=== PATIENT | male | born 1950 | race Caucasian/White ===

== ENCOUNTER 2019-10-14 09:09 | Inpatient (IN) ==
--- NOTE | 2019-10-14 10:02 | Diag Imaging Result Doc PS360 ---
CHEST-1 VIEW - 10/14/2019 INDICATION: pneumothorax COMPARISON: 10/13/2019 FINDINGS: There is a grossly stable large right pneumothorax of about 60%. IMPRESSION: Stable large right pneumothorax. Electronically signed by Pablo Pemberton 10/14/2019 10:00 AM
[2019-10-14] MEDS ORDERED: ATIVAN IV ONE (10:11)
--- NOTE | 2019-10-14 10:13 | PROVIDER DOCUMENTATION ---
HPI-General Adult - General Chief Complaint: Return/Recheck Stated Complaint: CALLED TO COME BACK BY ER PHYSICIAN Time Seen by Provider: 10/14/19 09:25 Source: patient Allergies/Adverse Reactions: Patient Allergies Allergy/AdvReac Type Severity Reaction Status Date / Time Penicillins Allergy Unknown Verified 10/13/19 23:40 Home Medications: Home Medication List Medication Instructions Recorded Confirmed Last Taken Type Ipratropium/Albuterol INH 1 puff INH RTQ6H 08/23/17 10/14/19 10/14/19 05:00 History [Combivent Respimat Inhaler] Albuterol [Albuterol Neb] 2.5 mg INH Q4H PRN PRN #30 neb 10/29/17 10/14/19 10/14/19 05:00 Rx Omeprazole [Prilosec] 20 mg PO DAILY@0700 06/07/18 10/14/19 10/14/19 06:00 History ATORVAstatin [Lipitor] 40 mg PO QPM 10/13/19 10/14/19 10/13/19 21:00 History Aspirin [Lo-Dose Aspirin EC] 81 mg PO DAILY 10/13/19 10/14/19 10/14/19 06:00 History Furosemide 40 mg PO DAILY 10/13/19 10/14/19 10/14/19 07:00 History Isosorbide Mononitrate E.r. [Imdur] 30 mg PO DAILY 10/13/19 10/14/19 10/14/19 06:00 History Lisinopril 2.5 mg PO DAILY 10/13/19 10/14/19 10/14/19 06:00 History Metoprolol Succinate E.r. [Toprol 25 mg PO DAILY 10/13/19 10/14/19 10/14/19 06:00 History Xl] Prasugrel [Effient] 10 mg PO DAILY 10/13/19 10/14/19 10/14/19 06:00 History - History of Present Illness -Gen Adult Nature of Presenting Problems: Patient was presented yesterday for SOB and is presenting today for chest tube placement on the right side. Quality of Pain: reports: throbbing Severity: reports: moderate Onset/Duration: reports: abrupt Timing: reports: still present Associated Symptoms: reports: cough, shortness of breath Similar Symptoms Previously?: No Recently seen or treated by another doctor?: No Review of Systems - Adult - REVIEW OF SYSTEMS - ADULT Constitutional: reports: no symptoms reported. denies: chills, fever, fatique Eyes: reports: no symptoms reported Ears, Nose, Mouth & Throat: reports: no symptoms reported Cardiovascular: reports: chest pain Respiratory: reports: chronic cough, dyspnea on exertion, shortness of breath Gastrointestinal: reports: no symptoms reported Genitourinary: reports: no symptoms reported Musculoskeletal: reports: no symptoms reported Integumentary: reports: no symptoms reported Neurological: reports: no symptoms reported Psychiatric: reports: no symptoms reported Endocrine: reports: no symptoms reported Hematologic/Lymphatic: reports: no symptoms reported Allergic/Immunologic: reports: no symptoms reported All Other Systems: Reviewed and Negative Past History - Adult - PAST MEDICAL HISTORY-ADULT Review of Records: reports: Old Records Reviewed, Medications Reviewed Major Childhood Illnesses: reports: denies history Cardiovascular: reports: denies history, HTN Respiratory: reports: COPD Gastrointestinal: reports: denies history Obstetrical/Gynecological: reports: denies history Genitourinary: reports: denies history Musculoskeletal: reports: denies history Neurological: reports: denies history Endocrine/Immune: reports: denies history Other Conditions: reports: denies history Additional History: alcoholism - PRIOR SURGERIES/PROCEDURES Surgical/Procedure History: reports: none - IMMUNIZATION STATUS Childhood Immunizations: See Nurse Assessment Flu Vaccine: See Nurse Assessment - FAMILY HISTORY Family History: reviewed, not pertinent - SOCIAL HISTORY Smoking: cigarettes Substance Use: none/never Alcohol Use Frequency: occasionally Physical Exam-General - PHYSICAL EXAM-ADULT Initial Vital Signs Reviewed: Yes (oxygen saturation is low) - CONSTITUTIONAL General Appearance: appears well, alert, mild distress - EYES Eyes: PERRL/EOMI - HEAD, EARS, NOSE, MOUTH & THROAT HENMT: normocephalic/atraumatic. negative: moist mucous membranes - NECK Neck: full range of motion. negative: trachial deviation - RESPIRATORY Respiratory: chest non-tender, respiratory distress (decreased lung sounds on right side correlate clinically with CXR), accessory muscle use, pain on i nspiration. negative: normal breath sounds (decreased breath sounds on the right side), no respiratory distress, dull on percussion (tympany on percussion of the right side) - CARDIOVASCULAR Cardiovascular: normal peripheral pulses, regular rate, rhythm, no edema, no gallop, no JVD, no murmur - GASTROINTESTINAL (ABDOMEN) Abdominal Exam: normal bowel sounds, non tender, soft - MUSCULOSKELETAL Back Exam: normal inspection Extremity: normal range of motion, non-tender, normal gait Peripheral Pulses: radial (R): 2+, radial (L): 2+ - SKIN Integumentary: normal color. negative: normal turgor - NEUROLOGIC Neurologic: grossly normal - PSYCHIATRIC Psych/Mental Status: normal mood/affect Progress - PLAN OF CARE/RESULTS Progress/Plan/Lab Results: Vital Signs - 8 hr 10/14/19 09:24 Temperature 98.2 F Pulse Rate 94 H Respiratory Rate 20 Blood Pressure 126/72 O2 Sat by Pulse Oximetry 92 L Orders Category Date Time Status Obtain Pleural Cath Starter Ki ORDERED Care 10/14/19 09:47 Ordered cxr [CHEST-1 VIEW] [RAD] Stat Exams 10/14/19 09:21 Ordered Chest Tube Tray Stat Oth 10/14/19 09:47 Ordered Result Diagrams: 10/14/19 10:15 10/14/19 10:15 - EKG 1 Time of EKG reading by physician:: 11:55 EKG Read and Signed by:: Sj Chatterjee EKG Interpretation (*Must complete 3 of following elements*): Abnormal Rate: 95 Rhythm: sinus Newell: normal QRS: normal IA Interval: normal ST Wave: non-specific ST changes Prior EKG Comparison: no prior EKG - XRAY 1 XRAY Study: Chest Impression: Abnormal (CHEST-1 VIEW - 10/14/2019 INDICATION: pneumothorax COMPARISON: 10/13/2019 FINDINGS: There is a grossly stable large right pneumothorax of about 60%. IMPRESSION: Stable large right pneumothorax. Electronically signed by Pablo Pemberton 10/14/2019 10:00 AM 10/14/19 1000 Interpreting Physician: Pablo Pemberton MD Dictated Date/Time: 10/14/19 1000 cc: Sj Chatterjee MD; Cezar Rosa MD) 2 XRAY Study: Chest Impression: Abnormal (CHEST-PORTABLE - 10/14/2019 11:01 AM INDICATION: CT placement COMPARISON: 9:43 AM FINDINGS: There has been placement of a right basilar chest tube. There has been significant improvement in the right pneumothorax, which is now less than 20%. No other abnormalities. IMPRESSION: Good right chest tube placement with significant improvement of the right pneumothorax. Electronically signed by Pablo Pemberton 10/14/2019 11:16 AM 10/14/19 1116 Interpreting Physician: Pablo Pemberton MD Dictated Date/Time: 10/14/19 1114 cc: Sj Chatterjee MD; Cezar Rosa MD) Comparison with other Films: changes noted (Patient now has chest tube placed, CXR is much improved. pending radiologic interpretation. CHEST-PORTABLE - 10/14/2019 11:01 AM INDICATION: CT placement COMPARISON: 9:43 AM FINDINGS: There has been placement of a right basilar chest tube. There has been significant improvement in the right pneumothorax, which is now less than 20%. No other abnormalities. IMPRESSION: Good right chest tube placement with significant improvement of the right pneumothorax. Electronically signed by Pablo Pemberton 10/14/2019 11:16 AM 10/14/19 1116 Interpreting Physician: Pablo Pemberton MD Dictated Date/Time: 10/14/19 1114 cc: Sj Chatterjee MD; Cezar Rosa MD) - CONSULTS/PCP/HOSPITALIST Notification #1 *Consult/PCP/Hospitalist*: Spoke with the hospitalist in person regarding patient Time Discussed: 17:06 Reason/Comments: PNA Consult Disposition: Will see in ED Procedures - CHEST TUBE Right Upper Mid-Axillary Chest Consent Form Signed?: Yes Time-Out Verification Completed?: Yes (10:10) Size of Icelandic Tube (cm): 28 Site Prepped: Kit Utilized, Betadine Anesthetic: 1% Volume of Anesthesia (ml's): 20 [place] of [place]: Yes Number of Attempts: 1 Connected to Wall Suction?: Yes Tube Drainage: see nurses notes Tube Sutured to Skin: Yes Placement Verified by XRAY?: Yes Procedure Comment: tube is in transverse superior position but is still draining air. Departure - Departure Date of Disposition Decision: 10/14/19 Time of Disposition Decision: 11:25 DIAGNOSIS: Primary spontaneous pneumothorax, Admission for chest tube placement, Hyponatremia, Leukopenia Nicotine dependence Qualifiers: Nicotine product type: cigarettes Substance use status: uncomplicated Qualified Code(s): F17.210 - Nicotine dependence, cigarettes, uncomplicated Disposition: ADMITTED INPATIENT 09 Certified Medical Emergency: Emergent Condition: Fair - Critical Care Note This patient required my direct & personal management of CC.: Yes Total Time (mins): 60 Critical Care Statement: This patient required my direct personal management to treat or rule out processes, the absence of which, could potentiallly result in sudden, clinically significant life or limb threatening deterioration. Comments: approximately 60 minutes of critical care time was spent with this patient. Chest tube insertion was required to prevent immenent life threatening deterioration of the patient's respiratory status eventually leading to hy poxemia. Attestation - Physician/ MARVIN Attestation Patient care was provided by Advanced Practice Provider:: No The physician spent face to face time with patient:: Yes Advanced Practice Provider documentation review:: Supervising physician onsite and consulted in the evaluation and care of this patient. The physician did have a face to face encounter with the patient.
[2019-10-14] MEDS ORDERED: XYLOCAINE 2%/EPI 1:100,000 INJ ONE (10:22)
[2019-10-14] MEDS ORDERED: XYLOCAINE 2%/EPI 1:200,000 INJ ONE (10:30)
[2019-10-14] MEDS ORDERED: XYLOCAINE-MPF 1% ONE (10:35)
[2019-10-14] MEDS ORDERED: DILAUDID IV ONE ×2 (10:41→10:58)
[2019-10-14] MEDS ORDERED: DILAUDID ONE (10:41)
[2019-10-14] MEDS ORDERED: XYLOCAINE 1% INJ ONE (10:41)
--- NOTE | 2019-10-14 11:18 | Diag Imaging Result Doc PS360 ---
CHEST-PORTABLE - 10/14/2019 11:01 AM INDICATION: CT placement COMPARISON: 9:43 AM FINDINGS: There has been placement of a right basilar chest tube. There has been significant improvement in the right pneumothorax, which is now less than 20%. No other abnormalities. IMPRESSION: Good right chest tube placement with significant improvement of the right pneumothorax. Electronically signed by Pablo Pemberton 10/14/2019 11:16 AM
[2019-10-14 11:51] LABS: INR 1.01; PROTIME 13.4 Seconds (11.0-16.0)
[2019-10-14 11:52] LABS: PTT 29.8 Seconds (22.3-41.8)
[2019-10-14 11:53] LABS: HEMATOCRIT 40.3 % (42.0-52.0); HEMOGLOBIN 13.2 g/dL (14.0-18.0); LYMPH% 11.9 % (20.5-51.1); MCH 30.8 PG (27-31); MCHC 32.8 g/dL (33-37); MCV 94.2 FL (81-99); MONO# 0.04 X1000 (0.11-0.59); MPV 10.6 FL (7.4-10.4); NEUT# 3.67 X1000 (1.4-6.5); NEUT% 87.1 % (42.2-75.2); PLT 191 X1000 (130-400); RBC 4.28 XMIL (4.7-6.1); RDW 13.1 % (11.5-14.5); WBC 4.21 X1000 (4.8-10.8)
[2019-10-14 12:03] LABS: AGAP 15; ALB/GLOB RATIO 2.1; ALBUMIN 4.5 g/dL (3.5-5.0); ALKALINE PHOSPHATASE 102 U/L (32-122); BUN 17 mg/dL (8-22); CALCIUM 9.9 mg/dL (8.8-10.2); CHLORIDE 98 mmol/L (98-107); CK PROFILE 99 U/L (24-204); COSMO 273; CREATININE 0.8 mg/dL (0.7-1.2); ESTIMATED GFR > 60; GLUCOSE 156 mg/dL (70-104); GOT 20 U/L (10-34); GPT 14 U/L (10-44); SODIUM 134 mmol/L (136-145); TCO2 21 mmol/L (25-35); TOTAL BILIRUBIN 0.48 mg/dL (0.20-1.00); TOTAL PROTEIN 6.6 g/dL (6.3-8.3)
--- NOTE | 2019-10-14 12:12 | EKG Report ---
Test Performed on : 10/14/2019 11:58:01 AM Test Reason : status post chest tube insertion Blood Pressure : / mmHG Vent. Rate : 095 BPM Atrial Rate : 095 BPM P-R Int : 146 ms QRS Dur : 092 ms QT Int : 372 ms P-R-T Axes : 054 -20 006 degrees QTc Int : 467 ms Normal sinus rhythm. Nonspecific T wave abnormality Abnormal ECG When compared with ECG of 13-OCT-2019 20:36, (Unconfirmed) Borderline criteria for Inferior infarct are no longer present Nonspecific T wave abnormality now evident in Lateral leads Unconfirmed Result
[2019-10-14] MEDS ORDERED: ZOFRAN IV PRN ×2 (13:14→13:44)
[2019-10-14] MEDS ORDERED: TYLENOL PO PRN (13:44)
--- NOTE | 2019-10-14 14:57 | Diag Imaging Result Doc PS360 ---
EXAM: CT THORAX W/CONTRAST INDICATION: copd/pneumothorax TECHNIQUE: This exam was performed using automated exposure control, adjustment of mA or kV according to patient size, and/or use of iterative reconstruction technique. COMPARISON: None. FINDINGS: There is moderate to advanced pulmonary emphysema with an apical predominance. There is a right side pneumothorax. It occupies approximately 30-40% of the right hemithorax. There has been placement of a right chest tube. The chest tube is kinked abdomen acute angle and it may not aspirate efficiently. The chest tube the right thoracic cavity at its lateral aspect. It courses through the anteroinferior pleural space and the tip is then directed upward and posteriorly. It follows the course of the major fissure and it is probably within the major fissure. The tip is at the posterior superior chest wall on the right. There is atelectasis at the dependent portion of the lung on the right and there is minimal atelectasis on the left. There is a focus of increased opacity at the periphery of the partially collapsed right middle lobe on image 62 of series 3 that could represent a small contusion or infiltrate. There is trace pleural fluid layering only right. There is no cardiomegaly. There is coronary artery calcification. There is no evidence of significant mediastinal or hilar lymphadenopathy. Limited views of the upper abdomen are unremarkable. There is thoracic spondylosis. There is no evidence of acute osseous abnormality. IMPRESSION: 1.Pulmonary emphysema. 2.Right-sided pneumothorax occupying approximately 30-40% of the right hemithorax. 3.Recently placed right chest tube that appears to be in the major fissure and is kinked acutely, which may per minute from aspirated efficiently. Please correlate clinically. 4.Bilateral atelectasis, more prominent on the right. 5.Small hyperdense focus at the periphery of the right middle lobe that could represent a small pulmonary contusion or infiltrate. Electronically signed by Maninder Valdivia 10/14/2019 2:55 PM
[2019-10-14] MEDS: DUONEB (A & A) INH SCH ×3 (16:19→23:17)
[2019-10-14] MEDS ORDERED: MORPHINE ONE (16:35)
[2019-10-14] MEDS ORDERED: MORPHINE IV ONE (16:50)
[2019-10-14] MEDS: NS 1,000 ML IV SCH (16:56)
[2019-10-14] MEDS: SOLU-MEDROL IV SCH ×2 (16:56→21:00)
[2019-10-14] MEDS: NORCO-5 PO PRN (16:57)
--- NOTE | 2019-10-14 17:18 | Diag Imaging Result Doc PS360 ---
EXAM: CHEST-PORTABLE INDICATION: chest tube placement TECHNIQUE: 2 views COMPARISON: 10/14/2019 FINDINGS: There has been interval removal of the previous right chest tube and replacement with a small caliber chest tube. The right-sided pneumothorax has decreased since the previous radiograph. It appears to occupy approximately 15% of the right hemithorax at the apex. There is subcutaneous gas overlying the right chest wall. Otherwise, the chest is essentially stable. IMPRESSION: Interval placement of right chest tube with a small caliber chest tube and decrease in the right apical pneumothorax. Electronically signed by Maninder Valdivia 10/14/2019 5:16 PM
[2019-10-14] MEDS: LIPITOR PO SCH (21:00)
[2019-10-14] MEDS: AZACTAM 1 GM in NS 50 ML IV SCH (21:00)
--- NOTE | 2019-10-14 22:03 | HISTORY AND PHYSICAL ---
CHIEF COMPLAINT: Was right upper quadrant pain, cough. HISTORY OF PRESENT ILLNESS: This is a 69-year-old gentleman with a history of atrial fibrillation, hypertension, COPD, and peptic ulcer disease. He presented to the emergency room initially on October 13 about 8 o'clock complaining of right upper quadrant pain going up into his chest, it increased with movement and cough as well as shortness of breath. He states it had a sudden onset. He was diagnosed with COPD exacerbation and discharged home after radiologist reviewed his chest x-ray this morning he was found to have a 60% right-sided pneumothorax. He was called to return to the emergency room. Chest tube was placed by the ER physician. Repeat chest x-ray revealed a less than 20% pneumothorax. The patient denies any shortness of breath after placement. The patient denied any injury prior to the sudden onset of shortness of breath. PAST MEDICAL HISTORY: 1. COPD. 2. Atrial fibrillation. 3. Hypertension. 4. Peptic ulcer disease. 5. Coronary artery disease. PAST SURGICAL HISTORY: Cataract removal, left shoulder surgery, hemorrhoids and cardiac catheterization. SOCIAL HISTORY: He quit smoking. He drinks about 2 beers a day. He denies any illicit drug use. ALLERGIES: Penicillin. HOME MEDICATIONS: A list will be obtained by the nursing staff and once verified will review and restart as appropriate. REVIEW OF SYSTEMS: Discussed with the patient with pertinent positives stated in the HPI. He denied any syncope or dizziness any chest pain any palpitations, a productive cough, fever, chills, night sweats, any nausea, vomiting, diarrhea, constipation, black or bloody vomitus or stools, any hematuria, dysuria, frequency, urgency. PHYSICAL EXAMINATION: GENERAL: This is a 69-year-old gentleman who is sitting up in the stretcher in the emergency room in no distress. VITAL SIGNS: Blood pressure is 131/67 with a heart rate of 96, respirations are 20, temperature is 97.7 degrees oral with O2 saturations 95-97% on 3 L. HEENT: Head is normocephalic, atraumatic. Mucous membranes are moist. NECK: Supple with trachea midline. CARDIOVASCULAR: Regular rate and rhythm. S1 and S2 are appreciated. He has no lower extremity edema. Calves are nontender bilateral with peripheral pulses palpable x4 extremities. PULMONARY: Breath sounds are diminished throughout. He does have some crackles to the right side. Chest rises and falls symmetric with respiration . GASTROINTESTINAL: Abdomen soft, nontender, nondistended. Bowel sounds in all 4 quadrants. NEUROLOGIC: He is alert and oriented x3. SKIN: Warm and dry. He has a dressing to the right chest tube site that at this time is dry and intact. LABORATORY DATA: 1. WBC is 4.2 with hemoglobin 13.2, hematocrit 40.3 and platelets of 191,000. Sodium is 134, potassium 5, BUN 17, creatinine 0.8 with a glucose of 156. Troponin is negative. Chest x- ray 10/14 at 9:40 reveals a stable large right pneumothorax. 2. Chest x-ray 1044 which is post chest tube placement reveals less than 20% pneumothorax with right chest tube in good placement per Radiology read. 3. 10/14/2019 at 1650 chest x-ray reveals removal of the previous right chest tube replacement with a small caliber chest tube with subcu gas overlying the right chest wall . 4. CT of the chest reveals pulmonary emphysema, right-sided pneumothorax occupying 30 to 40 percent the right hemothorax, recently placed right chest tube appears to be in the major fissure is kinked acutely, bilateral atelectasis more prominent on the right, small hyperdense focus at the periphery the right middle lobe that could represent a small pulmonary contusion or infiltrate. ASSESSMENT AND PLAN: 1. Right-sided pneumothorax spontaneous s/p chest tube insertion. He will be admitted to the medical floor. General surgery has been consulted for assistance with chest tube management. 2. Possible pneumonia. Will order blood and sputum cultures. IV antibiotics will be started. 3. Chronic anticoagulation on Effient. Aware. 4. History of atrial fibrillation. At present he is in sinus rhythm, will continue to monitor. 5. History of chronic obstructive pulmonary disease. Will continue his home medications and start supplemental oxygen. 6. History of hypertension. We will continue his home medicines as appropriate. 7. History of peptic ulcer disease. We will continue PPI Plan was discussed with Dr Grubbs Further treatments pending hospital course. Dictated by JAKCSON Skinner for Silvia Grubbs MD cc: JACKSON Skinner MD I performed a face to face encounter on the patient. I reviewed all labs and imaging on the patient. I agree with the H&P as dictated. Mr.Sean is a 69 year old male with a history of CAD and COPD who presented to the ER with a large right spontaneous pneumothorax. In the ER, a right sided chest tube was placed by the ER physician. A CT of the chest was ordered which revealed that the chest tube was not in place. General surgery was consulted and the chest was replaced. On exam, the patient is alert and oriented x 4. The breath sounds are equal bilaterally. His heart sounds are regular. The patient will be admitted with a diagnosis of a spontaneous right sided pneumothorax and pneumonia. General surgery will follow closely. Will also add antibiotic therapy and bronchodilator therapy. Blood and sputum cultures have been ordered. [facility]
--- NOTE | 2019-10-14 22:25 | GENERAL SURGERY CONSULTATION ---
DATE: 10/14/2019 REQUESTING PHYSICIAN: Dr. Orozco. CONSULT REQUEST: Right-sided pneumothorax. HISTORY OF PRESENT ILLNESS: A 69-year-old gentleman who initially came to the ER yesterday with shortness of breath. He was discharged but found on follow-up chest x-ray to have a pneumothorax. He was asked to come back to the emergency department. Upon evaluation in the emergency department he had a chest tube placed by the ER physician, which resolved some of the pneumothorax, but it looked like the chest tube was malposition after getting a chest CT scan. I was asked to weigh an opinion. Patient is still complaining of shortness of breath and chest pain. PAST MEDICAL HISTORY: History of atrial fibrillation, emphysema, asthma, hyperlipidemia, hypertension. PAST SURGICAL HISTORY: Includes cataract, left shoulder, hemorrhoids, cardiac stents. SOCIAL HISTORY: Former smoker, but does drink beer daily. ALLERGIES: Penicillin. HOME MEDICATIONS: Reviewed. FAMILY HISTORY: Reviewed with the patient and noncontributory. REVIEW OF SYSTEMS: A full 14-systems reviewed and negative, except as specified in HPI. PHYSICAL EXAMINATION: Vital Signs: The patient is currently afebrile. His vital signs stable. General: Somewhat acute distress. male, taking short breaths. HEENT: Normocephalic, atraumatic. Pupils equal, round, react to light. Mucous membranes moist. Oropharynx benign. Neck: Supple. Trachea midline. Cardiovascular: Regular rate and rhythm. Lungs: Decreased breath sounds noted on the right. Chest tube noted without any fluctuation with respirations. Abdomen: Soft, nontender, nondistended. Extremities: Moves all extremities. Neurologic: Grossly intact. Skin: No signs of jaundice. Vascular: All extremities perfused. LABORATORY: Reviewed. CT scan reviewed and independently reviewed and discussed with radiologist. ASSESSMENT AND PLAN: A 69-year-old gentleman with right-sided pneumothorax with malposition chest tube. Right-sided pneumothorax and right malposition chest tube. At this time, we will remove it and replace it. Discussed with patient the risks, benefits, alternatives. We will plan on doing this at the bedside. All questions answered. cc: Robert Morin MD
--- NOTE | 2019-10-14 22:31 | OPERATIVE NOTE ---
PROCEDURE DATE: 10/14/2019 PREOPERATIVE DIAGNOSIS: Right-sided pneumothorax with malposition chest tube. POSTOPERATIVE DIAGNOSIS: Right-sided pneumothorax with malposition chest tube. PROCEDURES: 1. Removal of chest tube on the right. 2. Placement of a 8-Lebanese chest tube. SURGEON: Robert Morin MD. HORSE AND WAGON DRIVER: None. ANESTHESIA: Local administered by the surgeon. FINDINGS: Evacuation of air noted when we placed the new chest tube. Chest x-ray is pending. BRIEF HISTORY: A 69-year-old gentleman with pneumothorax. He had a chest tube placed in the ER that was malpositioned and needed to be removed. The risks, benefits, and alternatives for the procedure were discussed and all questions answered. DESCRIPTION OF PROCEDURE: After informed consent was obtained, the patient remained in his room in the hospital. We removed the previous dressing from his chest tube. We cut the sutures from his previous chest tube and removed his previous chest tube with 1 continuous motion. We then prepped and draped the right chest in a standard fashion. After a formal time-out, confirming patient and procedure, we used local anesthetic to anesthetize the 5th intercostal space in the anterior axillary line, made a small stab incision, directed the pneumodart into the chest, aspirated air, advanced this catheter over the needle in the Seldinger technique and connected it to the chest tube. I evacuated a significant amount of air. We secured it in place and I also stitched the previous chest tube site closed. We then placed Xeroform over both and the patient tolerated the procedure well. A chest x-ray is pending. cc: Robert Morin MD
[2019-10-15] MEDS: DUONEB (A & A) INH SCH ×6 (04:01→23:37)
[2019-10-15] MEDS: AZACTAM 1 GM in NS 50 ML IV SCH ×3 (05:11→21:07)
[2019-10-15] MEDS: NS 1,000 ML IV SCH (06:11)
[2019-10-15] MEDS: SOLU-MEDROL IV SCH (06:12)
[2019-10-15] MEDS: PRILOSEC PO SCH (06:14)
[2019-10-15] MEDS ORDERED: PRILOSEC PO SCH (07:00)
--- NOTE | 2019-10-15 07:37 | Diag Imaging Result Doc PS360 ---
CHEST-1 VIEW - 10/15/2019 INDICATION: pneumothorax COMPARISON: 10/14/2019 at 5:07 PM FINDINGS: There is a stable small bore right chest tube. There has been decrease in the small right pneumothorax. There is probably a small apical pneumothorax measuring up to 1.1 cm, about 10%. IMPRESSION: Further decrease in the small right pneumothorax. Electronically signed by Pablo Pemberton 10/15/2019 7:35 AM
[2019-10-15 07:38] LABS: AGAP 14; BUN 17 mg/dL (8-22); CALCIUM 9.5 mg/dL (8.8-10.2); CHLORIDE 103 mmol/L (98-107); COSMO 280; CREATININE 0.9 mg/dL (0.7-1.2); ESTIMATED GFR > 60; GLUCOSE 157 mg/dL (70-104); POTASSIUM 4.3 mmol/L (3.5-5.1); SODIUM 138 mmol/L (136-145); TCO2 21 mmol/L (25-35)
[2019-10-15 07:57] LABS: HEMATOCRIT 39.4 % (42.0-52.0); HEMOGLOBIN 12.6 g/dL (14.0-18.0); IMM GRAN# 0.03 X1000 (0.0-0.04); IMM GRAN% 0.2 % (0.0-0.5); LYMPH# 0.46 X1000 (1.2-3.4); LYMPH% 3.8 % (20.5-51.1); MCH 30.6 PG (27-31); MCV 95.6 FL (81-99); MONO# 0.47 X1000 (0.11-0.59); MONO% 3.9 % (1.7-9.3); MPV 10.4 FL (7.4-10.4); NEUT# 11.18 X1000 (1.4-6.5); NEUT% 92.1 % (42.2-75.2); PLT 204 X1000 (130-400); RBC 4.12 XMIL (4.7-6.1); RDW 13.4 % (11.5-14.5); WBC 12.14 X1000 (4.8-10.8)
[2019-10-15 08:21] LABS: LYMPHS 4 % (21-51); MONO 3 % (1-9); SEGS 93 % (42-75)
[2019-10-15] MEDS ORDERED: LOVENOX SUBQ SCH (09:00)
[2019-10-15] MEDS: MIRALAX PO SCH (09:01)
[2019-10-15] MEDS: EFFIENT PO SCH (09:04)
[2019-10-15] MEDS: TOPROL XL PO SCH (09:04)
[2019-10-15] MEDS: PRINIVIL PO SCH (09:04)
[2019-10-15] MEDS: ZITHROMAX PO SCH (09:06)
[2019-10-15] MEDS: IMDUR PO SCH (09:06)
[2019-10-15] MEDS: ASPIRIN EC PO SCH (09:06)
[2019-10-15] MEDS: NORCO-5 PO PRN ×2 (09:07→19:30)
[2019-10-15] MEDS: COLACE PO SCH ×2 (09:12→21:07)
--- NOTE | 2019-10-15 10:07 | GENERAL SURGERY PROGRESS NOTE ---
DATE: 10/15/2019 SUBJECTIVE: Patient seems to be doing okay. His chest x-ray yesterday showed improvement, but he still has a small apical pneumothorax. Nursing staff reports that he seems to pull out his dressings for his chest tube. They even reported that he had tissues stuffed in his wound. When I evaluated the patient, his incision was okay. OBJECTIVE: Vital Signs: Patient is currently afebrile. Vital signs are stable. General: No acute distress. HEENT: Normocephalic, atraumatic. Pupils equal, round, reactive to light. Mucous membranes moist. Oropharynx benign. Neck: Supple. Trachea midline. Cardiovascular: Regular rate and rhythm. Lungs: Grossly clear. Increased breath sounds noted on the right. No air leak noted on the chest tube but the chest tube is to suction. Dressing is intact. Abdomen: Soft, nontender, nondistended. Extremities: Moves all extremities. Neurologic: Grossly intact. Skin: No signs of jaundice. Vascular: All extremities perfused. LABORATORY DATA: None this morning. IMAGING: Chest x-ray from yesterday reviewed. He has had improvement in his pneumothorax. ASSESSMENT AND PLAN: A 69-year-old gentleman with right-sided pneumothorax. Right-sided pneumothorax. At this time, keep the chest tube to suction. We will evaluate it later tomorrow to see if it is improved. Hopefully, will continue to cause resolution of the pneumothorax. It does not, may need to consider repositioned in the operating room, but my partner, Dr. Haley, who is covering over the holiday, will evaluate that. We will continue to follow. cc: Robert Morin MD
--- NOTE | 2019-10-15 11:23 | PROGRESS NOTE ---
DATE: 10/15/2019 SUBJECTIVE: The patient is lying in bed. He complains of pain where his chest tube is inserted in the right chest wall. He has no other complaints. OBJECTIVE: Vital Signs: Temperature 97.7 degrees, blood pressure 142/64, heart rate 89, respirations 23, O2 saturation 98% on room air. General: This is a chronically ill-appearing, elderly male, lying in bed in no acute distress. Heart: S1, S2 normal. Regular rate and rhythm. Lungs: Equal air entry bilaterally. No wheezing. No rales. No rhonchi. Abdomen: Positive bowel sounds. Soft, nontender, nondistended. Extremities: No edema, no cyanosis, no calf tenderness. Neurologic: The patient is alert and oriented x4. No focal neurologic deficits noted. LABORATORY DATA: White blood cell count 12, hemoglobin 12, hematocrit 39, platelets 204,000. Sodium 138, potassium 4.3, chloride 103, CO2 of 21, BUN 17, creatinine 0.9, glucose 157. ASSESSMENT AND PLAN: 1. Right sided pneumothorax status post chest tube placement. Slowly improving. Management as per the general surgeon. 2. Possible right lobe pneumonia. Will start the patient on antibiotics. Continue with bronchodilator therapy. 3. Emphysema. Aware. The patient states that he quit smoking a year ago. 4. Atrial fibrillation. The patient is rate controlled. Continue on the current cardiac medications. 5. Coronary artery disease. Continue on the current cardiac medications. 6. Alcohol dependence. Will monitor the patient closely for withdrawal symptoms. Will also start prn Ativan. 7. Constipation. Will start the patient on laxative therapy. 8. Chronic obstructive pulmonary disease. Continue with bronchodilator therapy. cc: Silvia Grubbs MD [facility]
--- NOTE | 2019-10-15 18:37 | CONSULTATION ---
DATE OF CONSULTATION: 10/15/2019 REQUESTING PROVIDER: Dr. Silvia Grubbs. REASON FOR CONSULTATION: COPD and pneumothorax, status post chest tube. HISTORY OF PRESENT ILLNESS: This is a 69-year-old male with a medical history of COPD, atrial fibrillation, hypertension, coronary artery disease and peptic ulcer disease. He apparently is our office patient. He presented to the ER on the evening of 10/13/2019 with acute right upper quadrant abdominal pain and shortness of breath. He initially was diagnosed with COPD exacerbation, and he was discharged home with a Medrol Dosepak. Later the radiologist reviewed his chest x-ray and found a 60% right-sided pneumothorax. The patient was called to come back for admission and followup procedure. After arrival to the ER, the patient underwent a chest tube placement by Dr. Morin. Followup chest x-ray revealed significant improvement of the right pneumothorax, which was less than 20%. The patient currently is sitting on the edge of the bed with no acute distress noted. He is on a NC at 3 L, and s tolerating it well. He states he is feeling better and the RUQ pain is improving. He reports that on the evening of 10/13/2019 he did eat some food that caused him lots of gas, and he is afraid that that is the reason he got the pneumothorax. He denies recent fall or any trauma to the chest. He reports he has cardio exercises daily including biking and stretches for over 4 months. He has some stable chronic cough and stable dyspnea on exertion. He has no chest pain, palpitations, fever, chills, noticeable weight change, bowel habit change, urination discomfort, pedal edema, or PND. PAST MEDICAL/SURGICAL HISTORY: 1. COPD. PFT on 09/10/2019 revealed moderate COPD with FEV1 66% predicted. On Advair and Combivent at home. 2. Atrial fibrillation. 3. Hypertension. 4. Coronary artery disease. 5. Peptic ulcer disease. 6. Status post cataract removal. 7. Status post left shoulder surgery. 8. Status post hemorrhoid removal. 9. Status post cardiac catheterization. SOCIAL HISTORY: The patient lives at home with his family. He used to smoke up to 3 or 4 packs per day since he was 6 years old. He quit smoking 8 years ago. He drinks about 2 beers a day for years, since he was 17 years old. He has no illicit drug use. 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 FAMILY HISTORY: Positive for COPD, Alzheimer disease, heart disease and cancer. ALLERGIES: Penicillins. REVIEW OF SYSTEMS: A 10-point review of systems was conducted, and the pertinent is listed within the HPI. Otherwise, noncontributory. PHYSICAL EXAMINATION: Vital Signs: Temperature 97.7, blood pressure 142/64, pulse 89, respiratory rate 23, oxygen saturation 93% on nasal cannula at 3 L. General: Chronically ill appearing, sitting on the edge of the bed with no acute distress noted. He does show some voluntary extremity tremors. HEENT: Atraumatic, normocephalic. Trachea midline. Mucosa pink and moist. Respiratory: Even and unlabored. Symmetrical excursion. Auscultation revealed diminished breathing sounds on the right side of the chest where the chest tube is located. Cardiovascular: Regular rate and rhythm. Gastrointestinal: Soft, nondistended, nontender. Normoactive bowel sounds in all 4 quadrants. Extremities: No pedal edema, no cyanosis, no clubbing. Dorsalis pedis 2+ bilaterally. Neurologic: Alert and oriented x3. Speech fluent. Follows commands. LABORATORY DATA: White blood cells 12.14, hemoglobin 12.6, hematocrit 49.4, platelets 104. Sodium 138, potassium 4.3, chloride 103, carbon dioxide 21, BUN 17, creatinine 0.9, glucose 157. IMAGING DATA: Chest x-ray this morning showed further decrease in the small right pneumothorax which is probably a small apical pneumothorax measuring up to 1.1 cm, about 10% now. ASSESSMENT: This is a 69-year-old male with a medical history of chronic obstructive pulmonary disease, atrial fibrillation, hypertension, coronary artery disease and peptic ulcer disease. He has been admitted since yesterday with a large right-sided pneumothorax. 1. Acute hypoxemic respiratory failure, improving. 2. Large right-sided pneumothorax, likely spontaneous, originally about 60%, currently improved to about 10% after a right-sided chest tube was placed. 3. Chronic obstructive pulmonary disease. No acute exacerbation noted. PLAN: 1. Continue management per the general surgeon. 2. Continue antibiotics and bronchodilators for possible right lobe pneumonia. 3. Follow up with CBC, BMP and chest x-ray. 4. Further recommendations pending hospital course. Thank you for the courtesy of this consult. Dictated by JACKSON Stanley for Lexy Crane MD cc: JACKSON Stanley MD [facility]
[2019-10-15] MEDS: LIPITOR PO SCH (21:07)
[2019-10-16] MEDS: DUONEB (A & A) INH SCH ×5 (03:52→19:52)
[2019-10-16] MEDS: MIRALAX PO SCH ×3 (04:47→21:15)
[2019-10-16] MEDS: AZACTAM 1 GM in NS 50 ML IV SCH ×3 (06:13→21:15)
[2019-10-16] MEDS: PRILOSEC PO SCH (06:13)
[2019-10-16] MEDS: NORCO-5 PO PRN ×2 (06:13→21:14)
--- NOTE | 2019-10-16 07:15 | Diag Imaging Result Doc PS360 ---
EXAM: CHEST-1 VIEW HISTORY: pneumothorax TECHNIQUE: Single view COMPARISON: 10/15/2019 FINDINGS: Interval increase in the size of the right-sided pneumothorax. This now measures just under 3 cm superiorly. Laterally it has also increased in size. Mild cardiomegaly and pulmonary edema. No effusions identified. IMPRESSION: Moderate sized right pneumothorax which is larger than on the prior study. Electronically signed by Trey Sweet 10/16/2019 7:13 AM
[2019-10-16 07:22] LABS: HEMATOCRIT 38.8 % (42.0-52.0); HEMOGLOBIN 12.4 g/dL (14.0-18.0); MCH 31.6 PG (27-31); MCV 98.7 FL (81-99); RBC 3.93 XMIL (4.7-6.1); RDW 13.8 % (11.5-14.5); WBC 12.63 X1000 (4.8-10.8)
[2019-10-16 07:50] LABS: AGAP 13; BUN 20 mg/dL (8-22); CALCIUM 9.9 mg/dL (8.8-10.2); CHLORIDE 104 mmol/L (98-107); COSMO 284; CREATININE 0.9 mg/dL (0.7-1.2); ESTIMATED GFR > 60; GLUCOSE 96 mg/dL (70-104); POTASSIUM 4.2 mmol/L (3.5-5.1); SODIUM 141 mmol/L (136-145); TCO2 24 mmol/L (25-35)
[2019-10-16] MEDS: ASPIRIN EC PO SCH (10:17)
[2019-10-16] MEDS: LACTULOSE PO SCH ×2 (10:17→21:15)
[2019-10-16] MEDS: ZITHROMAX PO SCH (10:18)
[2019-10-16] MEDS: TOPROL XL PO SCH (10:18)
[2019-10-16] MEDS: EFFIENT PO SCH (10:18)
[2019-10-16] MEDS: PRINIVIL PO SCH (10:18)
[2019-10-16] MEDS: COLACE PO SCH ×2 (10:19→21:15)
[2019-10-16] MEDS: IMDUR PO SCH (10:19)
--- NOTE | 2019-10-16 11:08 | GENERAL SURGERY PROGRESS NOTE ---
DATE: 10/16/2019 SUBJECTIVE: He feels okay. He denied any shortness of breath. Still coughing some. No tachycardia. OBJECTIVE: Oxygen saturations in high 90s on room air. General: He is alert. His right chest tube is in place. It is to -40 suction with no air leak. I reviewed his labs, overall about stable. I reviewed his x-ray. It does show a slight increase in his pneumothorax on today's study. ASSESSMENT AND PLAN: A 69-year-old gentleman with increased pneumothorax that was spontaneous. He had initial chest tube that was removed and then a small bore tube placed by Dr. Morin. This seems to be in place and is tidaling. However, he does have continued increase in his pneumothorax. Given this, we will make him nothing per oral at midnight. We will follow his x- ray in the morning. He may require more large bore chest tube placement in the operating room tomorrow. I have discussed with the patient. He obviously is apprehensive. He does not want another tube but I worry that with the increase that this will fail to resolve spontaneously. cc: Bette Haley MD
--- NOTE | 2019-10-16 15:57 | PROGRESS NOTE ---
DATE: 10/16/2019 INTERVAL HISTORY: He got x-ray of the chest, which unfortunately suggested worsening right-sided pneumothorax. General surgical team is planning possibly another chest tube placement in the operating room. SUBJECTIVE: The patient is feeling better. Denies chest pain, except occasional sharp pain in right lower chest. His shortness of breath has improved. He denies productive cough, though occasionally has dry cough. He denies any nausea, vomiting, abdominal pain. He is eating well. No lower extremity edema. VITAL SIGNS: He has been afebrile with temperature of 97.4 degrees, pulse 75, respiratory rate 18, blood pressure 136/73, saturating 97% on 2 L nasal cannula. PHYSICAL EXAMINATION: General: Not in acute distress. Oral cavity: Dry. Lungs: Air entry bilaterally equal. No wheeze, rhonchi, or crackles. Cardiovascular: S1, S2 normal. Regular. No murmur, rub, or gallop. Abdomen: Soft, nontender. Extremity: He is alert and oriented x3. He has a right-sided chest tube which is connected to chest tube bag apparatus without any air leak. LABS: Persistent mild leukocytosis, normocytic anemia, normal platelet count. Normal electrolytes. MICROBIOLOGY: No positive microbiological data. IMAGING: Chest x-ray today in the morning suggests moderate-sized right pneumothorax, which is larger on prior studies. ASSESSMENT AND PLAN: 1. Spontaneous right pneumothorax with prior history of chronic obstructive pulmonary disease, status post chest tube placement. Continue management as per general surgical team. 2. Suspected right lower lobe pneumonia. Continue albuterol ipratropium nebulization as needed, azithromycin and aztreonam. 3. History of atrial fibrillation, currently rate controlled. Continue his home medication of beta blockers. 4. History of coronary artery disease, status post stent in May 2019. Continue home aspirin, prasugrel, metoprolol, lisinopril, isosorbide and atorvastatin. 5. Alcohol use disorder. Patient does not have any signs of alcohol withdrawal. Continue laxative therapy for constipation. 6. Disposition: Monitor patient inside the hospital as we await further surgical recommendation. Plan of care discussed with the patient. cc: Pelon Sanchez MD
[2019-10-16] MEDS: LIPITOR PO SCH (21:14)
[2019-10-17] MEDS: DUONEB (A & A) INH SCH ×6 (05:17→23:14)
[2019-10-17] MEDS: AZACTAM 1 GM in NS 50 ML IV SCH ×3 (06:01→21:35)
--- NOTE | 2019-10-17 07:04 | Diag Imaging Result Doc PS360 ---
EXAM: CHEST-1 VIEW HISTORY: pneumothorax TECHNIQUE: Single view COMPARISON: 10/16/2019 FINDINGS: Stable right-sided pneumothorax. There is a small right chest tube which is unchanged. Left lung remains well expanded. No cardiomegaly. No pleural effusions identified. IMPRESSION: Stable chest Electronically signed by Trey Sweet 10/17/2019 7:01 AM
[2019-10-17] MEDS: PRILOSEC PO SCH (07:25)
[2019-10-17 07:28] LABS: AGAP 13; BUN 18 mg/dL (8-22); CALCIUM 9.7 mg/dL (8.8-10.2); CHLORIDE 106 mmol/L (98-107); COSMO 289; CREATININE 0.9 mg/dL (0.7-1.2); ESTIMATED GFR > 60; GLUCOSE 99 mg/dL (70-104); POTASSIUM 4.6 mmol/L (3.5-5.1); SODIUM 144 mmol/L (136-145); TCO2 25 mmol/L (25-35)
[2019-10-17] MEDS: ZITHROMAX PO SCH (10:40)
[2019-10-17] MEDS: PRINIVIL PO SCH (10:40)
[2019-10-17] MEDS: EFFIENT PO SCH (10:40)
[2019-10-17] MEDS: TOPROL XL PO SCH (10:40)
[2019-10-17] MEDS: ASPIRIN EC PO SCH (10:40)
[2019-10-17] MEDS: IMDUR PO SCH (10:41)
[2019-10-17] MEDS: COLACE PO SCH ×2 (10:49→21:34)
[2019-10-17] MEDS: LACTULOSE PO SCH ×2 (10:50→21:34)
[2019-10-17] MEDS: MIRALAX PO SCH ×2 (10:50→21:34)
[2019-10-17] MEDS: NORCO-5 PO PRN ×3 (11:52→23:57)
--- NOTE | 2019-10-17 11:52 | GENERAL SURGERY PROGRESS NOTE ---
DATE: 10/17/2019 SUBJECTIVE: He says with his pulmonary status he feels much better, he is breathing comfortably. He is not having any discomfort. No fevers. OBJECTIVE: Vitals: Pulse 73, blood pressure 129/72, oxygen saturation 97%. General: He is alert. Chest: His right chest tube is in place. It is up to -40 suction with no air leak, minimal output. The dressing is in place. He is in no acute distress on his respiratory rate, and I do not palpate any subcutaneous air. DIAGNOSTIC DATA: His creatinine is 0.9. I reviewed his chest x-ray, this shows a persistent stable right-sided pneumothorax, mostly apical, with an inferiorly-based small-bore chest tube. He does have some subcu air. There is no midline shift. ASSESSMENT AND PLAN: This is a 69-year-old gentleman with persistent pneumothorax despite initial chest tube placement that was malpositioned, and a subsequent small-bore chest tube. I have recommended chest tube placement in the operating room,posterior and apically with a larger bore tube. He is apprehensive. I discussed the pathophysiology of pneumothoraces and the probability of it resolving with this is low. He is not in any distress, and unfortunately our OR schedule is quite full today and it is going to be late this evening. He does not want to stay NPO all day. As such, we will make him n.p.o. at midnight and plan for chest tube first thing in the morning. We discussed risk of damage to lung, persistent leak, persistence of pneumothorax, anticipated recovery, and injury to surrounding structures and infection. He understands all this and consents. His family is here with him. cc: Bette Haley MD
--- NOTE | 2019-10-17 20:31 | PROGRESS NOTE ---
DATE: 10/17/2019 SUBJECTIVE: The patient is resting comfortably in bed. No acute events noted overnight. OBJECTIVE: Vital Signs: Temperature 98.1 degrees, blood pressure 107/68, heart rate 76, respirations 20, O2 saturation 99% on room air. General: This is a chronically ill-appearing elderly male sitting up in bed in no acute distress. Heart: S1, S2 normal. Regular rate and rhythm. Lungs: Equal air entry bilaterally. No wheezing. No rales. Abdomen: Positive bowel sounds. Soft, nontender, nondistended. Extremities: No edema, no cyanosis. Neurologic: The patient is alert and oriented x3. LABORATORY DATA: Sodium 144, potassium 4.6, chloride 106, CO2 25, BUN 18, creatinine 0.1, glucose 99. IMAGING: Chest x-ray shows a right-sided pneumothorax. ASSESSMENT AND PLAN: 1. Right sided pneumothorax status post chest tube placement. Unchanged. The patient is scheduled to go to the OR tomorrow. 2. Right lobe pneumonia. Continue with antibiotics and bronchodilator therapy. 3. Emphysema. Aware. 4. Atrial fibrillation. Continue on the current cardiac medications. 5. Alcohol dependence. Continue to monitor the patient closely for withdrawal. 6. Chronic obstructive pulmonary disease. Continue with bronchodilator therapy. 7. Constipation. Continue with scheduled laxative therapy. 8. CAD. Continue on the current cardiac medications. Hold effient. cc: Silvia Grubbs MD [facility]
[2019-10-17] MEDS: LIPITOR PO SCH (21:35)
[2019-10-18] MEDS: DUONEB (A & A) INH SCH ×6 (04:32→23:16)
[2019-10-18] MEDS: AZACTAM 1 GM in NS 50 ML IV SCH ×3 (06:11→22:08)
[2019-10-18] MEDS: PRILOSEC PO SCH (06:11)
[2019-10-18] MEDS ORDERED: MARCAINE 0.25% PF/EPI 1:200,000 ONE (07:29)
[2019-10-18 07:43] LABS: MAGNESIUM 2.2 mg/dL (1.5-2.7); PHOSPHORUS 3.6 mg/dL (2.7-4.5)
[2019-10-18] MEDS ORDERED: DIPRIVAN 1% ONE ×3 (07:54→08:14)
[2019-10-18 07:57] LABS: AGAP 10; BUN 19 mg/dL (8-22); CALCIUM 9.6 mg/dL (8.8-10.2); CHLORIDE 105 mmol/L (98-107); COSMO 282; CREATININE 0.8 mg/dL (0.7-1.2); ESTIMATED GFR > 60; GLUCOSE 100 mg/dL (70-104); POTASSIUM 4.5 mmol/L (3.5-5.1); SODIUM 140 mmol/L (136-145); TCO2 25 mmol/L (25-35)
[2019-10-18] MEDS ORDERED: XYLOCAINE 1% ONE (08:04)
[2019-10-18] MEDS ORDERED: XYLOCAINE-MPF 2% ONE (08:14)
[2019-10-18] MEDS: MORPHINE ONE ×5 (08:30→17:40)
--- NOTE | 2019-10-18 08:36 | Diag Imaging Result Doc PS360 ---
EXAM: CHEST-PORTABLE - 10/18/2019 HISTORY: chest tube insertion TECHNIQUE: Portable chest COMPARISON: 10/17/2019 FINDINGS: The right chest tube has been exchanged for a larger caliber right chest tube. The tip of the chest tube is located at the superior medial right chest. The right pneumothorax appears to have decreased mildly. There is no dense consolidation or pleural effusion identified. Heart size is normal. IMPRESSION: Tip of new chest tube at superior medial right chest. Mild decrease in right pneumothorax. Electronically signed by Alexey Jimenes 10/18/2019 8:34 AM
[2019-10-18] MEDS ORDERED: MORPHINE ONE (08:51)
[2019-10-18] MEDS: ZOFRAN ONE ×2 (08:55→17:40)
[2019-10-18] MEDS: EPHEDRINE ONE ×2 (09:00→17:40)
[2019-10-18] MEDS: LACTULOSE PO SCH ×2 (10:29→22:09)
[2019-10-18] MEDS: ASPIRIN EC PO SCH (10:30)
[2019-10-18] MEDS: COLACE PO SCH ×2 (10:30→22:08)
[2019-10-18] MEDS: ZITHROMAX PO SCH (10:30)
[2019-10-18] MEDS: IMDUR PO SCH (10:31)
[2019-10-18] MEDS: PRINIVIL PO SCH (10:31)
[2019-10-18] MEDS: TOPROL XL PO SCH (10:31)
[2019-10-18] MEDS: MIRALAX PO SCH ×2 (10:33→22:09)
[2019-10-18] MEDS: NORCO-5 PO PRN ×3 (10:33→20:04)
--- NOTE | 2019-10-18 12:00 | GENERAL SURGERY PROGRESS NOTE ---
DATE: 10/18/2019 SUBJECTIVE: Feels well. no issues over night OBJECTIVE: Vitals: Blood pressure 127/63. General: On exam he is alert, in no acute distress. HEENT: There is no scleral icterus. Skin: No jaundice. Abdomen: Soft, nontender, nondistended. Pulmonary: right ct in place DIAGNOSTIC DATA: I have reviewed his labs. ASSESSMENT AND PLAN: A gentleman, with persistent right pneumothorax despite 2 chest tubes one of which was malpositioned and the second a small bore tube. I have recommended large bore chest tube placement today. We discussed risk of bleeding infection cardiopulmonary complications need for further procedures. HE understands and consents. OR today. cc: Bette Haley MD [facility]
[2019-10-18] MEDS ORDERED: DILAUDID IV PRN ×2 (12:09→13:01)
--- NOTE | 2019-10-18 13:38 | OPERATIVE NOTE ---
PROCEDURE DATE: 10/18/2019 PREOPERATIVE DIAGNOSES: 1. Persistent right pneumothorax. 2. Emphysematous changes of the lung. POSTOPERATIVE DIAGNOSES: 1. Persistent right pneumothorax. 2. Emphysematous changes of the lung. PROCEDURE: Right-sided 32-Micronesian chest tube placement. ANESTHESIA: MAC with local. INDICATION: A gentleman who has had 2 chest tubes, one placed in the emergency department that was malpositioned, other small bore tube and he has had a persistent right-sided pneumothorax. Needs a large bore tube for more adequate drainage. Issues complicated by recent coronary stents on Effient which makes him a poor candidate for general anesthetic in that procedure. OPERATIVE FINDINGS: There was a starr of air. Minimal bleeding. Chest tube was secured at 13 cm. OPERATIVE NOTE: Risks, benefits and alternatives were discussed patient and he was seen preoperatively. Surgical site was confirmed and marked. He was taken operating room placed supine position, general anesthesia was induced. His arm was positioned above his head and IV anesthesia was administered. His right chest prepped with chlorhexidine solution and draped in the usual fashion. After time-out, we removed his previous chest tube. He had a previous chest tube incision that was closed with silk suture. As such, we elected to place our tube slightly inferior and posterior to this incision. We carried this down after injecting local anesthetic and aspirating air with our seeker needle to the rib and entered the chest using blunt dissection over the top of the rib protecting the artery and diaphragm. We were we confirmed we were intrathoracic and a 32-Micronesian chest tube was directed posterior and apically without resistance. It was secured with 2-0 silk suture. Dressing was applied. He tolerated it well. The chest tube titled well. There was a starr of air upon entering the chest. cc: Bette Haley MD [facility]
--- NOTE | 2019-10-18 18:30 | PROGRESS NOTE ---
DATE: 10/18/2019 SUBJECTIVE: The patient is resting comfortably in bed. No acute events noted overnight. He is complaining of pain at the site of his chest tube insertion. OBJECTIVE: Vital Signs: Temperature 98.8 degrees, blood pressure 106/71, heart rate 87, respirations 16, O2 saturation 98% on room air. General: This is a [id number] elderly male lying in bed in no acute distress. Heart: S1, S2 normal. Regular rate and rhythm. Lungs: Equal air entry bilaterally. Abdomen: Positive bowel sounds. Soft, nontender, nondistended. Extremities: No edema, no cyanosis. Neurologic: The patient is alert and oriented x3. LABS: Reviewed and within normal limits. ASSESSMENT AND PLAN: 1. Status post chest tube placement secondary to spontaneous right pneumothorax. Management as per the general surgeon. 2. Right lobe pneumonia. Continue with antibiotics, bronchodilator therapy and supplemental oxygen. 3. Emphysema. Aware. 4. Atrial fibrillation. The patient is rate controlled. Continue on the current cardiac medications. 5. Chronic obstructive pulmonary disease. Continue with bronchodilator therapy and supplemental oxygen. 6. Constipation. Continue with laxative therapy. 7. Alcohol dependence. The patient is on p.o. Ativan. 8. Coronary artery disease. Continue on the current cardiac medications. cc: Silvia Grubbs MD [facility]
[2019-10-18] MEDS: LIPITOR PO SCH (22:09)
[2019-10-19] MEDS: NORCO-5 PO PRN ×3 (00:41→14:13)
[2019-10-19] MEDS: DUONEB (A & A) INH SCH ×6 (03:45→22:59)
[2019-10-19] MEDS: AZACTAM 1 GM in NS 50 ML IV SCH ×3 (06:00→19:59)
[2019-10-19] MEDS: PRILOSEC PO SCH (06:00)
[2019-10-19] MEDS: ASPIRIN EC PO SCH (07:35)
[2019-10-19] MEDS: PRINIVIL PO SCH ×2 (07:42→14:36)
[2019-10-19] MEDS: TOPROL XL PO SCH ×2 (07:42→14:36)
[2019-10-19] MEDS: COLACE PO SCH ×4 (07:42→20:00)
[2019-10-19] MEDS: ZITHROMAX PO SCH ×2 (07:44→14:36)
[2019-10-19] MEDS: IMDUR PO SCH ×2 (07:44→14:35)
[2019-10-19] MEDS: EFFIENT PO SCH (07:45)
--- NOTE | 2019-10-19 08:38 | Diag Imaging Result Doc PS360 ---
EXAM: CHEST-PORTABLE HISTORY: ptx TECHNIQUE: Single view COMPARISON: 10/18/2019 FINDINGS: Interval decrease in the size of the right-sided pneumothorax. No change in the right chest tube. The left lung remains well expanded. The heart is borderline mildly prominent. No pulmonary edema. No pleural effusions identified. IMPRESSION: Interval improvement with decrease in the size of the right pneumothorax Electronically signed by Trey Sweet 10/19/2019 8:36 AM
[2019-10-19] MEDS: LACTULOSE PO SCH ×2 (14:35→20:00)
[2019-10-19] MEDS: MIRALAX PO SCH ×2 (14:35→20:00)
--- NOTE | 2019-10-19 14:55 | GENERAL SURGERY PROGRESS NOTE ---
DATE: 10/19/2019 SUBJECTIVE: He is doing well. No shortness of breath. No cough. No fevers. No tachycardia. OBJECTIVE: Blood pressure 130/62. Right chest tube is in place, -40 suction. No air leak. The output has been stable since last night, about a liter out though. I reviewed his labs and his x-rays. X-ray shows resolution of his pneumothorax this morning with good position of tube. No evidence of effusion. ASSESSMENT AND PLAN: A 69-year-old gentleman with right-sided pneumothorax. This is resolved now with his chest tube. We will keep it to suction through the day today and begin the process of water-seal and removal in the next 24 to 48 hours. Continue aggressive pulmonary toilet. cc: Bette Haley MD
--- NOTE | 2019-10-19 14:57 | PROGRESS NOTE ---
DATE: 10/19/2019 SUBJECTIVE: The patient is resting comfortably in bed. OBJECTIVE: Vital Signs: Temperature is 97.9 degrees, blood pressure 95/56, heart rate 89, respirations 17, O2 saturation is 97% on 2 L nasal cannula. General: This is a chronically ill- appearing, elderly male lying in bed, in no acute distress. Heart: S1, S2 normal. Regular rate and rhythm. Lungs: Clear to auscultation bilaterally. Abdomen: Positive bowel sounds. Soft, nontender, nondistended. Extremities: No edema, no cyanosis. Neurologic: The patient is alert and oriented x3. Labs: Sodium 140, potassium 4.5, chloride 105, CO2 of 25, BUN 19, creatinine 0.8, glucose 100. ASSESSMENT AND PLAN: 1. Status post chest tube placement secondary to a right-sided spontaneous pneumothorax. Improving. Management as per the general surgeon. 2. Right lobe pneumonia. Continue with antibiotics, supplemental oxygen, and bronchodilator therapy. 3. Emphysema. Aware. 4. Atrial fibrillation. The patient is rate controlled. Continue on the current cardiac medications. 5. Chronic obstructive pulmonary disease. Continue on bronchodilator therapy. 6. Constipation. Continue with scheduled laxative therapy. 7. Coronary artery disease. Continue on the current cardiac medications. cc: Silvia Grubbs MD
[2019-10-19] MEDS: LIPITOR PO SCH ×2 (19:52→20:00)
[2019-10-19] MEDS: ADVAIR 250/50 DISKUS INH SCH (20:10)
[2019-10-20] MEDS: DUONEB (A & A) INH SCH ×6 (03:43→23:11)
[2019-10-20] MEDS: PRILOSEC PO SCH (06:06)
[2019-10-20] MEDS: NORCO-5 PO PRN ×3 (06:13→14:30)
[2019-10-20] MEDS: ADVAIR 250/50 DISKUS INH SCH ×2 (07:31→19:56)
[2019-10-20 08:12] LABS: HEMATOCRIT 30.3 % (42.0-52.0); HEMOGLOBIN 9.8 g/dL (14.0-18.0); MCH 31.8 PG (27-31); MCHC 32.3 g/dL (33-37); MCV 98.4 FL (81-99); RBC 3.08 XMIL (4.7-6.1); RDW 13.1 % (11.5-14.5); WBC 7.45 X1000 (4.8-10.8)
[2019-10-20 08:29] LABS: AGAP 10; BUN 14 mg/dL (8-22); CALCIUM 9.2 mg/dL (8.8-10.2); CHLORIDE 102 mmol/L (98-107); COSMO 275; CREATININE 0.7 mg/dL (0.7-1.2); ESTIMATED GFR > 60; GLUCOSE 110 mg/dL (70-104); POTASSIUM 4.2 mmol/L (3.5-5.1); SODIUM 137 mmol/L (136-145); TCO2 25 mmol/L (25-35)
[2019-10-20] MEDS: AZACTAM 1 GM in NS 50 ML IV SCH ×2 (08:40→17:00)
[2019-10-20] MEDS: IMDUR PO SCH (08:41)
[2019-10-20] MEDS: EFFIENT PO SCH (08:41)
[2019-10-20] MEDS: TOPROL XL PO SCH (08:41)
[2019-10-20] MEDS: ZITHROMAX PO SCH (08:41)
[2019-10-20] MEDS: MIRALAX PO SCH ×2 (08:41→21:38)
[2019-10-20] MEDS: ASPIRIN EC PO SCH (08:42)
[2019-10-20] MEDS: LACTULOSE PO SCH ×3 (08:42→21:37)
[2019-10-20] MEDS: COLACE PO SCH ×2 (08:42→21:37)
[2019-10-20] MEDS: PRINIVIL PO SCH (08:46)
--- NOTE | 2019-10-20 10:40 | Diag Imaging Result Doc PS360 ---
CHEST-1 VIEW - 10/20/2019 INDICATION: SOB COMPARISON: 10/19/2019 FINDINGS: Stable right chest tube. Stable to slightly decreased soft tissue gas along the right chest wall. Stable faint infiltrate or atelectasis at the right lung base. No pneumothorax. No new abnormalities. IMPRESSION: Slight decrease in soft tissue gas along the right chest wall, otherwise no change from prior. Electronically signed by Pablo Pemberton 10/20/2019 10:38 AM
--- NOTE | 2019-10-20 17:23 | PROGRESS NOTE ---
DATE: 10/20/2019 SUBJECTIVE: The patient is resting comfortably in bed. He states that he feels good. The only time he hurts is if he tries to move around too much. His chest tube is in place. OBJECTIVE: Vital Signs: Temperature 98.3 degrees, blood pressure 106/63, heart rate 88, respirations 17, O2 saturations 100% on room air. General: This is a chronically ill-appearing elderly male lying in bed in no acute distress. Heart: S1, S2 normal. Regular rate and rhythm. Lungs: Equal air entry bilaterally. No wheezing, no rales. Abdomen: Positive bowel sounds. Soft, nontender, nondistended. Extremities: No edema, no cyanosis. Neuro: The patient is alert and oriented x4. LABS: Hemoglobin 9.8, hematocrit 30, platelets 215,000. Sodium 137, potassium 4.2, chloride 102, CO2 25, BUN 14, creatinine 0.7, glucose 110. Chest x-ray shows slight decrease in soft tissue gas along the right chest wall. ASSESSMENT AND PLAN: 1. Status post chest tube placement secondary to right-sided spontaneous pneumothorax. Slowly improving. Management as per the general surgeon. 2. Right lobe pneumonia. Improved. Continue with antibiotics, supplemental oxygen and bronchodilator therapy. 3. Chronic obstructive pulmonary disease with emphysema. Aware. Continue on bronchodilator therapy. 4. Atrial fibrillation. The patient is rate controlled. Continue on the current cardiac medications. 5. Coronary artery disease. Stable. Continue on the current cardiac medications. 6. Constipation. Continue on MiraLAX and Colace. Will also add Dulcolax suppositories. cc: MD RATNA Fraser
[2019-10-20] MEDS: LIPITOR PO SCH (21:37)
--- NOTE | 2019-10-20 21:37 | GENERAL SURGERY PROGRESS NOTE ---
DATE: 10/20/2019 SUBJECTIVE: Feels much better. Minimal discomfort at the chest tube site. No shortness of breath. No fevers. OBJECTIVE: Vital signs: Pulse 88, blood pressure 106/63, oxygen 100 percent. General: He is alert. Cardiovascular: Normal rate. Pulmonary: His right chest tube is in place on pulmonary exam. It is to -40 suction. There is a stable amount of output since yesterday right at a L. There is no air leak with Valsalva. LABORATORIES: I reviewed his labs. Hematocrit 30 from 38. Creatinine is 0.7. IMAGING: I reviewed his x-ray that shows resolution of pneumothorax with decreasing subcu air. ASSESSMENT AND PLAN: A 69-year-old gentleman with right-sided pneumothorax. We will place a chest tube. We will decrease to -20 suction. If it remains inflated tomorrow, we will water seal it and plan on removal 24 hours after that. Otherwise, continue pulmonary toileting, nebulized therapy. cc: Bette Haley MD
[2019-10-20] MEDS: DULCOLAX PR SCH (21:38)
[2019-10-21] MEDS: NORCO-5 PO PRN ×4 (00:23→22:32)
[2019-10-21] MEDS: AZACTAM 1 GM in NS 50 ML IV SCH ×2 (00:43→08:16)
[2019-10-21] MEDS: DUONEB (A & A) INH SCH ×6 (04:07→23:20)
[2019-10-21] MEDS: PRILOSEC PO SCH (06:03)
[2019-10-21 07:48] LABS: HEMATOCRIT 30.2 % (42.0-52.0); HEMOGLOBIN 9.8 g/dL (14.0-18.0); MCH 31.5 PG (27-31); MCHC 32.5 g/dL (33-37); MCV 97.1 FL (81-99); MPV 9.7 FL (7.4-10.4); RBC 3.11 XMIL (4.7-6.1); RDW 13.3 % (11.5-14.5); WBC 7.06 X1000 (4.8-10.8)
--- NOTE | 2019-10-21 07:54 | Diag Imaging Result Doc PS360 ---
CHEST-1 VIEW - 10/21/2019 INDICATION: SOB COMPARISON: 10/20/2019 FINDINGS: Stable right chest tube. There is further decrease in the mild right chest wall soft tissue gas. No pneumothorax. No new infiltrates. Heart size remains normal. IMPRESSION: No complication or new abnormality. Electronically signed by Pablo Pemberton 10/21/2019 7:51 AM
[2019-10-21] MEDS: ADVAIR 250/50 DISKUS INH SCH ×2 (08:04→19:23)
[2019-10-21] MEDS: EFFIENT PO SCH (08:16)
[2019-10-21] MEDS: PRINIVIL PO SCH (08:16)
[2019-10-21] MEDS: ASPIRIN EC PO SCH (08:16)
[2019-10-21] MEDS: ZITHROMAX PO SCH (08:17)
[2019-10-21] MEDS: IMDUR PO SCH (08:17)
[2019-10-21] MEDS: TOPROL XL PO SCH (08:17)
[2019-10-21] MEDS: MIRALAX PO SCH ×2 (08:19→22:26)
[2019-10-21] MEDS: COLACE PO SCH ×2 (08:19→22:25)
[2019-10-21] MEDS: LACTULOSE PO SCH ×2 (08:19→22:25)
[2019-10-21 08:36] LABS: AGAP 11; BUN 14 mg/dL (8-22); CHLORIDE 103 mmol/L (98-107); COSMO 276; CREATININE 0.7 mg/dL (0.7-1.2); ESTIMATED GFR > 60; GLUCOSE 104 mg/dL (70-104); POTASSIUM 4.5 mmol/L (3.5-5.1); SODIUM 138 mmol/L (136-145); TCO2 24 mmol/L (25-35)
--- NOTE | 2019-10-21 19:31 | PROGRESS NOTE ---
DATE: 10/21/2019 INTERVAL HISTORY: No acute events overnight. SUBJECTIVE: Patient denies any chest pain, shortness of breath, nausea, vomiting, unusual cough, abdominal pain. He has had a bowel movement. He has some discomfort because of chest tube. I discussed with him about chest x-ray findings, resolution of pneumothorax and pneumonia. I answered all of his questions. VITALS: Temperature of 97.9 degrees, pulse 74, respiratory 18, blood pressure 130/68. He is saturating 98% on room air. PHYSICAL EXAMINATION: General: Does not appear in any acute distress. He has a right-sided chest tube. HEENT: Oral cavity is moist. Lungs: Air entry bilaterally equal. No wheeze, rhonchi, crackles. Cardiovascular: S1, S2 normal. No murmur, rub, or gallop. Abdomen: Soft, nontender. Extremity: No lower extremity edema. Neurologic: He is alert and oriented x3. Input and output suggests -1.8 L. LABS: Suggestive of normocytic anemia, normal platelet count. Normal electrolytes. MICROBIOLOGY: No positive data. IMAGING: Chest x-ray suggests no complication or new abnormality. ASSESSMENT AND PLAN: 1. Right-sided spontaneous pneumothorax with history of emphysema, status post chest tube twice and eventually requiring another large-bore chest tube placement in the operating room. Continue chest tube management as per surgical team. 2. Right lower lobe pneumonia, status post intravenous aztreonam and azithromycin of seven days, which I will stop today. 3. History of chronic obstructive pulmonary disease with emphysema, aware. Continue bronchodilator therapy. 4. History of atrial fibrillation, currently well controlled on home metoprolol. 5. History of coronary artery disease requiring stent in May 2019. I will continue his home aspirin, atorvastatin, isosorbide mononitrate, lisinopril, metoprolol and prasugrel. DISPOSITION: Awaiting chest tube removal. Plan of care discussed with the patient and his questions have been satisfactorily answered. cc: Pelon Sanchez MD
[2019-10-21] MEDS: DULCOLAX PR SCH (22:25)
[2019-10-21] MEDS: LIPITOR PO SCH (22:25)
--- NOTE | 2019-10-21 22:42 | GENERAL SURGERY PROGRESS NOTE ---
DATE: 10/21/2019 SUBJECTIVE: Doing well. No fevers. No tachycardia. He is saturating high 90s on room air. OBJECTIVE: General: He is alert. His right chest tube is to -20 suction with no air leak. DIAGNOSTIC DATA: His chest x-ray shows no evidence of ongoing pneumothorax and less subcutaneous air. ASSESSMENT AND PLAN: Water seal his tube. If lung remains inflated tomorrow with no leak, we will plan on removing at that juncture. Otherwise, continue pulmonary toileting. cc: Bette Haley MD
[2019-10-22] MEDS: DUONEB (A & A) INH SCH ×4 (04:08→16:11)
--- NOTE | 2019-10-22 06:11 | Diag Imaging Result Doc PS360 ---
EXAM: CHEST-1 VIEW HISTORY: SOB TECHNIQUE: Single view COMPARISON: 10/21/2019 FINDINGS: The lungs are well expanded. No change in the right chest tube. There is only a tiny pneumothorax. No consolidation. No pulmonary edema. No cardiomegaly. No pleural effusions identified. IMPRESSION: Stable chest Electronically signed by Trey Sweet 10/22/2019 6:09 AM
[2019-10-22] MEDS: PRILOSEC PO SCH (06:51)
[2019-10-22 07:55] LABS: HEMATOCRIT 33.2 % (42.0-52.0); HEMOGLOBIN 10.7 g/dL (14.0-18.0); MCH 30.7 PG (27-31); MCHC 32.2 g/dL (33-37); MCV 95.1 FL (81-99); RBC 3.49 XMIL (4.7-6.1); RDW 13.1 % (11.5-14.5); WBC 6.77 X1000 (4.8-10.8)
[2019-10-22 08:04] LABS: AGAP 13; BUN 13 mg/dL (8-22); CALCIUM 9.7 mg/dL (8.8-10.2); CHLORIDE 101 mmol/L (98-107); COSMO 272; CREATININE 0.7 mg/dL (0.7-1.2); ESTIMATED GFR > 60; GLUCOSE 105 mg/dL (70-104); POTASSIUM 4.5 mmol/L (3.5-5.1); SODIUM 136 mmol/L (136-145); TCO2 22 mmol/L (25-35)
[2019-10-22] MEDS: MIRALAX PO SCH ×2 (09:15→22:40)
[2019-10-22] MEDS: EFFIENT PO SCH (09:16)
[2019-10-22] MEDS: COLACE PO SCH ×2 (09:16→22:37)
[2019-10-22] MEDS: TOPROL XL PO SCH (09:16)
[2019-10-22] MEDS: ASPIRIN EC PO SCH (09:16)
[2019-10-22] MEDS: PRINIVIL PO SCH (09:16)
[2019-10-22] MEDS: IMDUR PO SCH (09:16)
[2019-10-22] MEDS: LACTULOSE PO SCH ×2 (09:17→22:40)
--- NOTE | 2019-10-22 12:20 | Diag Imaging Result Doc PS360 ---
EXAM: CHEST-PORTABLE HISTORY: chest tube removal TECHNIQUE: Single view COMPARISON: 5:24 AM FINDINGS: Interval removal of the right chest tube. No change in the size of the tiny pneumothorax. No other interval change. IMPRESSION: Chest tube removal with no expansion of the tiny right pneumothorax Electronically signed by Trey Sweet 10/22/2019 12:18 PM
--- NOTE | 2019-10-22 14:27 | GENERAL SURGERY PROGRESS NOTE ---
DATE: 10/22/2019 SUBJECTIVE: Doing well. No hypoxia or tachycardia overnight. No fevers. His right chest tube is to water seal. There is no air leak. There has been a couple 100 mL of serosanguineous output overnight. I have reviewed his labs. I reviewed his x-ray. It shows continued expansion of his lung with the tube on water seal, with near-complete resolution of the subcutaneous air. ASSESSMENT AND PLAN: A 69-year-old gentleman with right-sided chest tube for spontaneous pneumothorax. This has resolved. He has tolerated decrease in the suction and 24 hours of water- seal. I removed his tube this morning, placed an occlusive dressing. Will get a chest x-ray later today. If his lung remains expanded, I would be reasonable for him to go home either today or tomorrow from a surgical perspective. cc: Bette Haley MD
[2019-10-22] MEDS: ADVAIR 250/50 DISKUS INH SCH ×2 (16:12→19:45)
[2019-10-22] MEDS ORDERED: TYLENOL PO PRN ×2 (18:38→19:20)
[2019-10-22] MEDS ORDERED: NORCO-5 PO PRN ×2 (18:39→19:20)
[2019-10-22] MEDS: LIDODERM TOP ONE ×2 (19:42→19:44)
[2019-10-22] MEDS: DUONEB (A & A) INH PRN ×2 (19:46→23:10)
[2019-10-22] MEDS: LIPITOR PO SCH (22:37)
[2019-10-22] MEDS: DULCOLAX PR SCH (22:40)
[2019-10-23] MEDS: DUONEB (A & A) INH PRN ×2 (03:13→08:24)
[2019-10-23] MEDS: PRILOSEC PO SCH (06:40)
--- NOTE | 2019-10-23 07:13 | PROGRESS NOTE ---
DATE: 10/22/2019 INTERVAL HISTORY: Mr. Gallegos chest tube was removed. Repeat chest x-ray did not have any recurrence of pneumothorax. SUBJECTIVE: Denies any chest pain, shortness of breath except some soreness at the chest tube site which has already been removed. He also complains of some gaseous distention. VITALS: Temperature 98 degrees, pulse 88, respiratory rate 17, blood pressure 108/60, saturating 98% room air. PHYSICAL EXAMINATION: Not in acute distress.HEENT: Oral cavity is moist. Lungs: Air entry equal. No wheeze, rhonchi, crackles. Cardiovascular: S1, S2 normal. No murmur or gallop. Abdomen: Soft, nontender. Extremity: No lower extremity edema. Neurologic: He is alert and oriented x3. LABS: CBC and BMP are unremarkable. Repeat chest x-ray in the morning time did not have an expansion of right pneumothorax. ASSESSMENT AND PLAN: 1. Right-sided spontaneous pneumothorax. 2. History of emphysema. 3. Right lower lobe pneumonia. 4. History of COPD. 5. History of atrial fibrillation. 6. History of coronary artery disease status post stent in May 2019 on dual anti-platelet. PLAN: Continue home medications. Follow up with chest x-ray tomorrow morning. I will start him on lidocaine patch and keep him on pain medications. If his chest x-ray tomorrow is unremarkable and there is no recurrence of pneumothorax, I will discharge him home. He is in agreement with the plan. cc: Pelon Sanchez MD
--- NOTE | 2019-10-23 07:16 | Diag Imaging Result Doc PS360 ---
EXAM: CHEST-1 VIEW 10/23/2019 HISTORY: SOB TECHNIQUE: AP portable upright at 0553 COMMENT: There are fibrotic appearing opacities in the right apex. There is COPD. Compared to 10/22/2019 there has been further diminishment in the size of the residual apical pneumothorax on the right. Otherwise are has been no significant change. IMPRESSION: Improved right pneumothorax. Electronically signed by Thiago Hernandez 10/23/2019 7:14 AM
[2019-10-23 08:07] VITALS: BP 129/75
[2019-10-23] MEDS: EFFIENT PO SCH (08:43)
[2019-10-23] MEDS: PRINIVIL PO SCH (08:43)
[2019-10-23] MEDS: IMDUR PO SCH (08:43)
[2019-10-23] MEDS: LACTULOSE PO SCH ×2 (08:43→08:47)
[2019-10-23] MEDS: MIRALAX PO SCH (08:43)
[2019-10-23] MEDS: TOPROL XL PO SCH (08:44)
[2019-10-23] MEDS: ASPIRIN EC PO SCH (08:44)
[2019-10-23] MEDS: COLACE PO SCH (08:44)
[2019-10-23] MEDS: ADVAIR 250/50 DISKUS INH SCH (08:48)
--- NOTE | 2019-10-23 09:00 | PROVIDER PROGRESS NOTE ---
Progress Note Pulmonary additional note: Case assessed. Full note to follow.
--- NOTE | 2019-10-24 14:52 | DISCHARGE SUMMARY ---
ADMISSION DATE: 10/14/2019 DISCHARGE DATE: 10/23/2019 DISCHARGE DISPOSITION: Home. DISCHARGE CONDITION: Hemodynamically stable. His pneumothorax has reduced to almost nil. He is denying any chest pain or shortness of breath. He has some soreness at the site where the chest tube was inserted. He is alert and oriented. DISCHARGE DIAGNOSES: 1. Right-sided spontaneous pneumothorax. 2. History of emphysema and chronic obstructive pulmonary disease. 3. Right lower lobe pneumonia. 4. History of atrial fibrillation. 5. History of coronary artery disease status post stent in May 2019 on dual anti-platelet. 6. Essential hypertension. OTHER DIAGNOSES: 1. History of peptic ulcer disease. 2. History of hemorrhoids. DISCHARGE MEDICATIONS: 1. Albuterol ipratropium inhalation 1 puff every 6 hours. 2. Prasugrel 10 mg daily. 3. Furosemide 40 mg daily. 4. Isosorbide mononitrate extended release 30 mg daily. 5. Atorvastatin 40 mg at nighttime. 6. Lisinopril 2.5 mg daily. 7. Aspirin 81 mg daily. 8. Omeprazole 20 mg daily. 9. Metoprolol succinate extended release 25 mg daily. 10. Albuterol nebulization 2.5 mg inhaled every 4 hours as needed for shortness of breath. 11. Lidocaine 5% patch 1 patch topical daily as needed over the chest tube insertion site for pain. 12. Acetaminophen 1000 mg every 8 hours as needed for pain at the chest tube insertion site. VITALS: At the time of discharge: Temperature 98.4 degrees, pulse 82 respiratory 19, blood pressure 129/75 saturating 98% on room air. PHYSICAL EXAMINATION: Mr. Estrada is not in acute distress. His oral cavity is moist. Lungs: Air entry bilaterally equal. No wheeze, rhonchi, or crackles. Cardiovascular: S1, S2 normal. No murmur, rub, or gallop. Abdomen: Soft, nontender. He does not have any lower extremity edema. He has a dressing over the right-sided chest. Neurologic: He is alert and oriented x3. LABORATORY DATA: Hemoglobin 10.7, WBC 6.7, platelet 292,000. BUN 13, creatinine 0.7. Microbiology: No positive data. IMAGING: During hospital admission: Chest x-ray on October 14 had a large right-sided pneumothorax occupying about 60% of his lung. On chest CT on October 14 had a pulmonary emphysema, right-sided pneumothorax occupying 40% of the right hemithorax, but the right-sided chest tube was i major fissure and it was acutely kinked. There was also bilateral atelectasis and small hyperdense focus in the periphery of the right middle lobe that could represent a small pulmonary contusion or infiltrate. Chest x-ray on 10/23/2019 at discharge had fibrotic appearing opacities of the right apex, COPD. There was further diminishment in the size of the residual topical pneumothorax on the right. Otherwise, there was no significant change. Electrocardiogram on presentation had normal sinus rhythm, nonspecific T-wave abnormality. CONSULTATION DURING HOSPITAL ADMISSION: 1. General surgeon, Dr. Haley. 2. Dr. Crane, pulmonology. HOSPITAL COURSE SUMMARY: Mr. Myers is 69 years old man with a past medical history of tobacco abuse, which he quit 7 years ago, COPD, coronary artery disease requiring stent in May 2019 on dual antiplatelet therapy, who had initially came in on 10/13/2019 nighttime with chief complaints of right-sided chest pain and shortness of breath. Chest x-ray was performed and he was diagnosed with COPD exacerbation and was discharged home. However the next morning radiologist had provided the official read and he was diagnosed to have right-sided pneumothorax. He was called in to get admitted. On admission surgical team was consulted and on 10/14/2019 he underwent chest tube placement in the emergency room. However, that chest wound was malpositioned and needed to be removed, so a small bore chest tube was put in on October 14 by general surgical team/ With the small bore chest tube his pneumothorax did not completely resolve and he had persistent right pneumothorax, so on 10/18/2019 surgical team placed in another right 32-[place] large-bore chest tube in the operating room, which he tolerated well. After the large bore chest tube placement his pneumothorax resolved and his chest tube was removed on 10/22/2019. He was observed for 24 hours and 24 hours later the x-ray suggested further reduction in his pneumothorax to almost minimal. It was decided to discharge the patient and have outpatient followup with general surgery. At the time of discharge, the patient was provided detailed discharge instructions about following with general surgeon and regular provider and discuss about this admission within 7 days. All of his questions were answered more than 30 minutes of time was spent in taking care of this patient. On the chest CT on presentation he also had a small dense focus opacity on the right side of the lung which was thought to be related to pneumonia and it was treated with antibiotics. At the time of discharge, the patient did not have fever, chills, or leukocytosis. cc: Pelon Sanchez MD
== END 2019-10-23 14:19 | disposition hospice, home (50) | DRG 199 ==
LOC: ED 09:09 → SUATTDRO 13:44 → EDIPHOLD 13:44 → 3N 15:43
PROVIDERS: ATTEND Internal Medicine